=== PATIENT | male | born 1975 | race Caucasian/White ===

== ENCOUNTER 2016-08-25 17:46 | Emergency (ER) | payer MEDICAID ==
[2016-08-25] MEDS ORDERED: ZESTORETIC 20-1 EAC3 PO (20:21)
[2016-08-25] MEDS ORDERED: NORCO 5-325 TA1 EACH PO (21:37)
== END 2016-08-25 21:43 ==
LOC: EDMED 17:46
DX: R07.81 Pleurodynia (principal); R07.89 Other chest pain; I10 Essential (primary) hypertension; Z98.890 Other specified postprocedural states
CPT/HCPCS: J1885